=== PATIENT | male | born 1975 | race Caucasian/White ===

== ENCOUNTER 2017-05-27 19:55 | Emergency (ER) | payer OTHER ==
[2017-05-27 21:18] VITALS: BP 136/81
[2017-05-27] MEDS ORDERED: predniSONE TAB* 20 MG PO ONE (21:32)
--- NOTE | 2017-05-27 21:32 | UC ---
Respiratory Complaint HPI - HPI Summary HPI Summary: Cough, SOB , Chest pain with coughing. Headaches, body aches. - History of Current Complaint Chief Complaint: UCRespiratory Stated Complaint: UPPER RESPIRATORY Hx Obtained From: Patient Onset/Duration: Sudden Onset, Lasting Days - 1, Worse Since - onset Severity Initially: Mild Severity Currently: Moderate Pain Intensity: 6 Character: Cough: Nonproductive Associated Signs And Symptoms: Positive: Fever, Chills, Pleuritic Chest Pain, Wheezing, URI, Sinus Discomfort Related History: Seasonal Allergies - Allergies/Home Medications Allergies/Adverse Reactions: Allergies Allergy/AdvReac Type Severity Reaction Status Date / Time environmental allergies Allergy Congestion Uncoded 02/02/14 15:51 Home Medications: Home Medications Acetaminophen [Acetaminophen Extra Strength] 1,000 mg PO Q4H PRN 05/27/17 [ History Confirmed 05/27/17] Ibuprofen TAB* [Motrin TAB* 400 MG] 400 mg PO Q4H PRN 05/27/17 [History Confirmed 05/27/17] cephALEXin [Keflex] 500 mg PO TID 05/27/17 [History Confirmed 05/27/17] PMH/Surg Hx/FS Hx/Imm Hx Respiratory History: Asthma - Surgical History Surgical History: Yes Surgery Procedure, Year, and Place: back 2004 sinus 2001, c/5 c/6 fusion . neck 2003. tonsils 1991. R shoulder 1992. L knee 1993; R knee 11/2012 - Family History Known Family History: Positive: Cardiac Disease, Hypertension, Diabetes - Social History Occupation: Employed Full-time Lives: With Family Alcohol Use: None Substance Use Type: None Smoking Status (MU): Never Smoked Tobacco Have You Smoked in the Last Year: No - Immunization History Most Recent Influenza Vaccination: Not the Season Review of Systems Constitutional: Fever ENT: Sinus Congestion, Sinus Pain/Tenderness Respiratory: Shortness Of Breath, Cough Cardiovascular: Chest Pain - with coughing Is Patient Immunocompromised?: No All Other Systems Reviewed And Are Negative: Yes Physical Exam Triage Information Reviewed: Yes Appearance: No Pain Distress, Well-Nourished, Ill-Appearing Vital Signs: Initial Vital Signs Temp 100.6 F 05/27/17 21:13 Pulse 105 05/27/17 21:13 Resp 18 05/27/17 21:13 BP 136/81 05/27/17 21:13 Pulse Ox 97 05/27/17 21:13 Vital Signs Reviewed: Yes Eyes: Positive: Conjunctiva Inflamed ENT: Positive: Pharynx normal, TMs normal Neck exam: Normal Respiratory: Positive: Wheezing - expiratory with coughing Cardiovascular: Positive: Tachycardia Musculoskeletal Exam: Normal Neurological: Positive: Alert, Fatigued Psychological Exam: Normal Skin Exam: Normal UC Diagnostic Evaluation - Laboratory O2 Sat by Pulse Oximetry: 97 Respiratory Course/Dx - Differential Dx/Diagnosis Differential Diagnosis/HQI/PQRI: Asthma, Influenza, Lower Resp Infection, Sinusitis Provider Diagnoses: Influenza B. Asthma with acute exacerbation Discharge - Discharge Plan Condition: Stable Disposition: HOME Prescriptions: Oseltamivir CAP* [Tamiflu CAP*] 75 mg PO BID #10 cap predniSONE TAB* [Deltasone TAB*] 20 mg PO DAILY #18 tab Patient Education Materials: Influenza (ED), Oseltamivir (By mouth), Prednisone (By mouth) Referrals: [facility] [Primary Care Provider] -
[2017-05-27] MEDS ORDERED: Oseltamivir CAP* 75 MG CAP PO ONE (21:39)
== END 2017-05-27 21:51 | disposition home or self-care (01) ==
LOC: UCCORT 19:55
DX: J10.1 Influenza due to other identified influenza virus with other respiratory manifestations (principal); J45.901 Unspecified asthma with (acute) exacerbation
CPT/HCPCS: 87502; 99212; A9270-GY; G0463; J7512